=== PATIENT | female | born 1985 | race Caucasian/White ===

== ENCOUNTER → 2018-08-26 12:13 | Outpatient (BNVA) | payer MEDICARE, MEDICAID, SELFPAY | PROVIDERS: Visit Provider Nurse Practitioner Family | DX: R69 Illness, unspecified (principal) ==

== ENCOUNTER → 2019-01-01 08:00 | Outpatient (BNVA) | payer MEDICARE, MEDICAID, SELFPAY | PROVIDERS: Visit Provider Internal Medicine Cardiovascular Disease | DX: I48.91 Unspecified atrial fibrillation (principal) ==

== ENCOUNTER → 2019-02-26 13:47 | Outpatient (BNVA) | payer MEDICARE, MEDICAID, SELFPAY | PROVIDERS: Visit Provider Internal Medicine Cardiovascular Disease | DX: R69 Illness, unspecified (principal) ==

== ENCOUNTER → 2019-07-01 07:32 | Outpatient (BNVA) | payer MEDICARE, MEDICAID, SELFPAY | PROVIDERS: Visit Provider Internal Medicine Cardiovascular Disease | DX: I48.91 Unspecified atrial fibrillation (principal) ==

== ENCOUNTER → 2019-08-13 06:16 | Outpatient (BNVA) | payer MEDICARE, MEDICAID, SELFPAY | PROVIDERS: Visit Provider Psychiatry & Neurology Neurology | DX: R69 Illness, unspecified (principal) | CPT/HCPCS: 99214 ==

== ENCOUNTER → 2019-09-28 10:17 | Outpatient (BNVA) | payer MEDICARE, MEDICAID, SELFPAY | PROVIDERS: Visit Provider Student in an Organized Health Care Education/Training Program | DX: R69 Illness, unspecified (principal) ==

== ENCOUNTER → 2019-11-04 12:47 | Outpatient (CLI) | payer MEDICARE, MEDICAID, SELFPAY ==
--- NOTE | 2019-11-04 12:45 | RT.EKG_ITS ---
APPROVED REPORT Exam: Resting ECG HR:63 bpm ECG Measurements Heart Rate 63 AXES MO 141 P 46 QRSd 84 QRS 54 QT 399 T 45 QTc 409 <Conclusion> Sinus rhythm...normal P axis, V-rate 50- 99 The ED physician agrees with the ECG cart interpretation.
== END ==
DX: R69 Illness, unspecified (principal)
CPT/HCPCS: 93005; 93010

== ENCOUNTER 2020-03-29 13:55 | Inpatient (IN) | payer BC, SELFPAY | END 2020-04-18 10:41 | DRG 951 | LOC: PDS 14:07 | DX: R69 Illness, unspecified (principal) ==

== ENCOUNTER → 2020-04-19 08:16 | Outpatient (CLI) | payer BC, SELFPAY ==
--- NOTE | 2020-05-13 | DI.CTLCSR_ITS ---
EXAM: CT CHEST LUNG CANCER SCREEN CLINICAL HISTORY: testing for result codes TECHNIQUE: Imaging Protocol: Axial computed tomography images with coronal and sagittal reformatted images were created and reviewed COMPARISON: No exams were available for comparison FINDINGS: Tracheobronchial tree: Patent where visualized. Mediastinum and Hillary: No dominant adenopathy or fluid collection. Pulmonary parenchyma: No consolidation or dominant measurable mass. No architectural distortion. Lung Nodules: None. Pleura: No effusion or pneumothorax. Heart: The heart is not dilated. No coronary artery calcifications are seen. Aorta: Thoracic aorta non-dilated. Upper abdomen: Unremarkable. Bones: Within normal limits. Soft Tissues: Unremarkable. IMPRESSION: Normal low dose CT lung screening Lung Rad cat 3 - Probably Benign: Probably benign finding(s) - short term follow-up suggested; includ e nodules with a low likelihood of becoming a clinically active cancer. Lung-RADS 1.0 CATEGORIES: Category 0 - Prior chest CT exam(s) being located for comparison. Category 1 - Annual screening in 12 months. No nodules or definitely benign nodules. Category 2 - Annual screening in 12 months. Benign appearance. Nodules with low likelihood of becomin g active cancer. Category 3 - 6-month follow-up. Probably benign. Short-term follow-up suggested. Nodules with low lik elihood of becoming active cancer. Category 4A - 3-month follow-up and CT/PET if >8 mm in size. Suspicious finding. Findings which requi re additional testing. Category 4B - Findings which require additional testing and tissue sampling. Suspicious finding. C Added to Any of the Above - History of prior lung cancer screening. S Added to Any of the Above - Significant unexpected other finding. RADIATION DOSE DELIVERED: Total DLP DATA REPOSITORY: All CT scans at this facility are submitted to the National Radiology Data Registry (NRDR) Dose Index Registry (DIR) with the [employer] (ACR). RADIATION OPTIMIZATION: All CT scans at this facility use at least one of these dose optimization te chniques: automated exposure control; mA and/or kV adjustment per patient size (includes targeted exa ms where dose is matched to clinical indication); or iterative reconstruction.
--- NOTE | 2020-06-21 10:22 | PDOC.MHCN ---
Date of service: 06/21/20 Time of Service: 10:22 Mental Health Crisis Note Disposition BEHAVIOR: Aggressive, agitated. EYE CONTACT: Wandering. Pupils dilated.
== END ==
PROVIDERS: Visit Provider Internal Medicine Cardiovascular Disease
DX: R69 Illness, unspecified (principal)

== ENCOUNTER 2020-11-02 14:31 | Outpatient (CLI) | payer BC, SELFPAY ==
--- NOTE | 2020-11-02 14:30 | RT.EKG_ITS ---
APPROVED REPORT Exam: Resting ECG Reason for Exam: testing Patient Location: O HR:[id number] bpm ECG Measurements Heart Rate [id number] [place] [id number] P [id number] QRSd [id number] QRS [id number] QT [id number] T [id number] QTc 0 Conclusion testing
== END 2020-11-02 14:32 | disposition home or self-care (01) ==
LOC: DI.CM 14:32
CPT/HCPCS: 93010

== ENCOUNTER → 2020-11-02 14:31 | Outpatient (BNVA) | payer BC, SELFPAY | PROVIDERS: Visit Provider Internal Medicine Cardiovascular Disease | DX: R69 Illness, unspecified (principal) ==

== ENCOUNTER 2020-12-16 02:30 | Emergency (ER) | payer BC, SELFPAY ==
--- NOTE | 2021-05-09 09:45 | DI.US_ITS ---
APPROVED REPORT EXAM: Stress Echocardiogram Ordering Provider: AUGUSTINA WILSON, Contact Number: Echo Enhancing Agent Comments: test Stress Test Details Rest Stress HR Max Heart Rate (APMHR): 166 bpm Target HR (85% APMHR): 141 bpm BP ECG Clinical Rate Pressure Product: 0 Stress ECG Conclusion 1. testing Conclusion testing
== END 2020-12-16 02:45 ==
LOC: ER 02:38
PROVIDERS: Emergency Provider Student in an Organized Health Care Education/Training Program
DX: R69 Illness, unspecified (principal)

== ENCOUNTER → 2021-01-18 14:58 | Outpatient (BNVA) | payer BC, SELFPAY | PROVIDERS: Visit Provider Internal Medicine Cardiovascular Disease ==

== ENCOUNTER → 2021-06-20 09:03 | Outpatient (CLI) | payer BC, SELFPAY ==
--- NOTE | 2021-06-20 | DI.US_ITS ---
APPROVED REPORT EXAM: Stress Echocardiogram Stress Nurse: Josefina Roberson RN Ordering Provider: JULIANE ALLEN, Contact Number: HR: 60 bpm BP: 120/80 mmHg Rhythm: NSR Indications: Chest pain Medical History Medical History: None Medications: None Allergies: NKA Cardiac Risk Factors: None Previous Cardiac Procedures: None Pretest Chest Pain Characteristics: None Exercise History: Physically active Physical Disabilities: None Stress Test Details Test: Exercise stress testing was performed using a [place] protocol. Rest Stress HR Resting HR Supine: 60 bpm Max Heart Rate (APMHR): 166 bpm Resting HR Standin bpm Target HR (85% APMHR): 141.880073 bpm Max HR Achieved: 135 bpm % of APMHR: 81 Recovery HR: 60 bpm HR response to stress: Normal HR response to stress BP Resting BP Supine: 120/80 mmHg Resting BP Standin/80 mmHg Max BP: 160/80 mmHg Recovery BP: 120/80 mmHg BP response to stress: Normal blood pressure response to stress. ECG Resting ECG: Sinus Rhythm Ectopy: None Stress ECG: Sinus Tachycardia ST Change: No significant ST segment changes noted Arrhythmia: None Recovery ECG: Sinus Rhythm Recovery ST Change: No significant ST segment changes noted Recovery Arrhythmia: None Clinical Reason for Termination: Fatigue Stress Symptoms: General Fatigue Exercise duration: 10 min sec Highest Stage Reached: Stage 4: 4.2 mph at 16% grade. Carrera Treadmill Score: 8.0 Rate Pressure Product: 83642 Stress ECG Conclusion 1. Testing reporting Carrera Treadmill Score is 8.0 which is Low risk. Stress Test Summary STAGE Time (mins) Speed (mph) Grade (%) HR BP SYMPTOMS METS Supine 60 120/80 Standing 60 120/80 1 3 1.7 10 60 120/80 4.6 2 6 2.5 12 60 120/80 7 3 9 3.4 14 60 120/80 10.2 4 12 4.2 16 60 120/80 12.9 5 15 5.0 18 60 120/80 17.2 1 min recovery 60 120/80 3 min recovery 60 120/80 Here is a report. Conclusion Testing reporting Plain Carrera Treadmill Score is 8.0 which is Low risk.
--- NOTE | 2021-06-21 | DI.US_ITS ---
APPROVED REPORT EXAM: Stress Echocardiogram Ordering Provider: JULIANE ALLEN, Contact Number: Stress Test Details Rest Stress HR Target HR (85% APMHR): 141.099982 bpm BP ECG
[2021-07-13 05:46] LABS: PTT Activated 99.6 sec (21.0-27.5)
--- NOTE | 2021-09-04 | DI.CT_ITS ---
Exam(s) CT LUMBAR SPINE RECONS EXAM: CT LUMBAR SPINE RECONS CLINICAL HISTORY: testing split. Test TECHNIQUE: Imaging Protocol: Axial computed tomography images with coronal and sagittal reformatted images were created and reviewed COMPARISON: No exams were available for comparison none test FINDINGS: Bones: There are no fractures, listhesis, nor pars defects. There are no lytic osseous lesions evide nt. INDIVIDUAL LEVELS: T12-L1:No disc herniation nor canal stenosis. Facet joints unremarkable. No foraminal stenosis. L1-2: No disc herniation nor canal stenosis. Facet joints unremarkable. No foraminal stenosis. L2-3: No disc herniation nor canal stenosis. Facet joints unremarkable. No Foraminal stenosis L3-4: No disc herniation nor canal stenosis. Facet joints unremarkable. No foraminal stenosis. L4-5: No disc herniation nor canal stenosis. L5-S1: No disc herniation or canal stenosis. The visualized sacroiliac joints and sacrum appear unremarkable. PARASPINAL SOFT TISSUES: Visualized paraspinal tissues appear unremarkable. IMPRESSION: 1. 2. 3. RADIATION DOSE DELIVERED: Total DLP DATA REPOSITORY: All CT scans at this facility are submitted to the National Radiology Data Registry (NRDR) Dose Index Registry (DIR) with the [employer] (ACR). RADIATION OPTIMIZATION: All CT scans at this facility use at least one of these dose optimization te chniques: automated exposure control; mA and/or kV adjustment per patient size (includes targeted exa ms where dose is matched to clinical indication); or iterative reconstruction.
[2022-01-12 09:24] VITALS: RESP 17
== END ==
PROVIDERS: Visit Provider Family Medicine
DX: R69 Illness, unspecified (principal); M48.061 Spinal stenosis, lumbar region without neurogenic claudication
CPT/HCPCS: 93350; 93017

== ENCOUNTER 2021-07-11 09:41 | Outpatient (CLI) | payer BC, SELFPAY | END 2021-07-11 09:42 | disposition home or self-care (01) | LOC: ABBOTT 09:42 ==

== ENCOUNTER 2022-07-12 05:33 | Outpatient (CLI) | payer BC, SELFPAY | END 2022-07-12 05:34 | disposition home or self-care (01) | LOC: LBO 05:34 | DX: E03.9 Hypothyroidism, unspecified (principal) | CPT/HCPCS: 84443 ==

== ENCOUNTER 2023-06-13 08:36 | Emergency (ER) | payer OTHER, SELFPAY | END 2023-06-13 14:59 | DX: Z53.21 Procedure and treatment not carried out due to patient leaving prior to being seen by health care provider (principal) ==

== ENCOUNTER 2023-07-03 11:56 | Outpatient (CLI) | payer OTHER, SELFPAY ==
--- NOTE | 2023-07-08 10:59 | W.HOLTRPT ---
Date of service: 07/03/23 Time of Service: 15:00 Holter Monitor Report Referring Provider:: test provider Indications:: This is just a test. This should not be billed. We are unable to test in the TEST environment. Holter Monitor Note: No additional notes. Hopefully it completes the order from [facility]B.
== END 2023-07-03 11:57 | disposition home or self-care (01) ==
LOC: CARDOPNVT 11:56
DX: I48.91 Unspecified atrial fibrillation (principal)
CPT/HCPCS: 00123; 93225

== ENCOUNTER 2023-07-16 13:39 | Inpatient (IN) | payer SELFPAY ==
[2023-07-16 14:01] VITALS: BP 112/76; PULSE 66; PULSE 67; O2SAT 96
== END 2023-07-16 14:06 | disposition home or self-care (01) ==
LOC: OBS 13:41
DX: Z00.00 Encounter for general adult medical examination without abnormal findings (principal)

== ENCOUNTER 2023-10-10 08:41 | Emergency (ER) | payer MEDICAID, SELFPAY | END 2023-10-10 09:34 | LOC: ER 08:42 | DX: Z53.9 Procedure and treatment not carried out, unspecified reason (principal) ==

== ENCOUNTER → 2023-12-12 05:42 | Outpatient (BNVA) | payer MEDICARE, SELFPAY | PROVIDERS: Visit Provider Student in an Organized Health Care Education/Training Program | CPT/HCPCS: 20610; 99214 ==

== ENCOUNTER 2023-12-12 05:45 | Emergency (ER) | payer MEDICARE, SELFPAY | END 2023-12-12 06:57 | LOC: ER 05:48 | DX: Z53.21 Procedure and treatment not carried out due to patient leaving prior to being seen by health care provider (principal) ==

== ENCOUNTER 2024-04-16 08:42 | Outpatient (CLI) | payer MEDICARE, SELFPAY ==
[2024-05-14 06:45] LABS: INR 1.6 (0.9-1.1); Prothrombin Time 15.6 sec (9.1-11.1)
[2024-06-18 04:44] LABS: Calcium 9.6 mg/dL (8.5-10.1); Glucose 105 mg/dL (74-106)
[2024-06-18 04:45] LABS: BUN 20 mg/dL (7-18); CREATININE 1.2 mg/dL (0.55-1.02); Chloride 100 mmol/L (98-107); Sodium 130 mmol/L (136-145)
== END 2024-04-16 08:43 | disposition home or self-care (01) ==
LOC: LBO 08:42
DX: E05.90 Thyrotoxicosis, unspecified without thyrotoxic crisis or storm (principal); Z79.01 Long term (current) use of anticoagulants
CPT/HCPCS: 84443

== ENCOUNTER 2024-09-17 03:21 | Outpatient (CLI) | payer SELFPAY ==
[2024-09-17 03:29] LABS: BUN 10 mg/dL (7-18); CREATININE 0.8 mg/dL (0.55-1.02); Chloride 100 mmol/L (98-107); Estimated GFR 85.89 (mL/min/1.73m2); Glucose 70 mg/dL (74-106); Sodium 140 mmol/L (136-145)
[2024-11-19 03:50] LABS: HGB 10.2 g/dL (11.2-15.7); MCV 82 fL (80-95); RBC 3.99 10^6/uL (3.93-5.22); RDW 12.3 % (11.7-14.6); WBC 5.23 10^3/uL (4.4-10.8)
[2024-11-19 03:51] LABS: MPV 9.1 fL (8.0-11.0); Platelet Count 420 10^3/uL (130-400)
[2025-01-21 03:27] LABS: Chloride 105 mmol/L (98-107); Sodium 145 mmol/L (136-145)
[2025-03-21 13:06] LABS: Glucose 100 mg/dL (74-106)
== END 2024-09-17 03:22 | disposition home or self-care (01) ==
LOC: LBO 03:22
DX: O99.019 Anemia complicating pregnancy, unspecified trimester (principal); O09.40 Supervision of pregnancy with grand multiparity, unspecified trimester
CPT/HCPCS: 80048

== ENCOUNTER 2024-12-17 03:49 | Inpatient (IN) | payer BC, SELFPAY | END 2024-12-17 03:56 | disposition home or self-care (01) | LOC: ER 03:49 → ICU 03:55 ==

== ENCOUNTER 2025-03-18 04:16 | Inpatient (IN) | payer BC, SELFPAY ==
[2025-03-18 04:24] LABS: Anion Gap 8.0 mmol/L (3-11); BUN 15 mg/dL (7-18); CO2 32.0 mmol/L (21.0-32.0); Calcium 9.6 mg/dL (8.5-10.1); Chloride 102 mmol/L (98-107); Estimated GFR 47.66 (mL/min/1.73m2); Glucose 100 mg/dL (74-106); Potassium 4.2 mmol/L (3.5-5.1); Sodium 142 mmol/L (136-145)
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
[2025-03-18 04:51] LABS: Albumin 3.6 g/dL (3.4-5.0); Alkaline Phosphatase 110 U/L (46-116); BUN 12 mg/dL (7-18); Bilirubin, Total 1.0 mg/dL (0.2-1.0); Calcium 9.2 mg/dL (8.5-10.1); Estimated GFR 65.30 (mL/min/1.73m2); Glucose 82 mg/dL (74-106); Sodium 140 mmol/L (136-145); Total Protein 7.3 g/dL (6.4-8.2)
[2025-03-18 04:52] LABS: ALT 60 U/L (14-59); AST 98 U/L (15-37); Anion Gap 20.0 mmol/L (3-11); CO2 21.0 mmol/L (21.0-32.0); Chloride 99 mmol/L (98-107); Potassium 3.8 mmol/L (3.5-5.1)
[2025-04-07 12:22] LABS: Glucose < 4 mg/dL
[2025-05-18 13:59] LABS: Vancomycin, Peak 14.9 ug/mL (25.0-40.0)
[2025-05-18 14:00] LABS: Obstetrics Magnesium 2.6 mg/dL (1.8-2.4)
[2025-06-21 14:45] LABS: Magnesium 1.9 mg/dL (1.6-2.6)
== END 2025-03-18 04:37 | disposition home or self-care (01) ==
LOC: ER 04:18 → MS 04:32
CPT/HCPCS: 80048; 80053; 80307; 82947; 80202; 83735